=== PATIENT | female | born 1980 | race Caucasian/White ===

== ENCOUNTER 2017-04-16 15:27 | Emergency (ER) | payer SELFPAY ==
[~2017-04-16] VITALS: Ht 157.5 cm; Wt 78.9 kg
[2017-04-16 15:33] VITALS: Ht 157.5 cm; Wt 78.9 kg
[2017-04-16] MEDS ORDERED: ATA50 PO (16:03)
[2017-04-16] MEDS ORDERED: KENC1 TOP (16:03)
[2017-04-16] MEDS ORDERED: ELIM TOP (16:03)
--- NOTE | 2017-04-16 16:12 | ERD ---
ER Documentation Chief Complaint Date/Time DATE: 04/16/17 TIME: 16:10 Chief Complaint rash x 8 mos HPI Extension qc analyst has been used. This is a 36-year-old female no past medical history presents with 8 months of a rash to her extremities and trunk that is significantly pruritic and excoriated. The patient has tried permethrin cream once with only mild success. She denies any fevers or chills , no weight loss, no night sweats. Her whom with she shares her bed has similar symptoms. ROS All systems reviewed and are negative except as per history of present illness. Medications Home Meds Active Scripts Permethrin* (Elimite*) 5% Cr, 1 APPLIC TOP ONCE, #1 TUB Prov:KRISTEN RODRIGUEZ MD 04/16/17 Triamcinolone Acetonide* (Kenalog*) 0.1%-15GM Cr, 1 APPLIC TOP TID, #1 TUB Prov:KRISTEN RODRIGUEZ MD 04/16/17 Hydroxyzine Hcl* (Atarax*) 50 Mg Tab, 50 MG PO Q6H Y for ITCHING, #30 TAB Prov:KRISTEN RODRIGUEZ MD 04/16/17 FmHx Family History: No diabetes Physical Exam Vitals Vital Signs Date Time Temp Pulse Resp B/P Pulse Ox O2 Delivery O2 Flow Rate FiO2 04/16/17 15:33 98.1 99 18 124/74 99 Physical Exam General: Well developed, well nourished, no acute distress Head: Normocephalic, atraumatic. Eyes: EOM intact ENT: Moist mucous membranes Neck: Full ROM Respiratory: No respiratory distress Cardiovascular: Good capillary refil Abdominal: Nondistended : Deferred MSK: No edema, no unilateral swelling, 5/5 strength Neurologic: Alert and oriented, moving all extremities, normal speech, steady gait Skin: Diffuse excoriations to extremities and trunk, sparing of the interdigital and inner webspaces of the fingers and toes, no erythema warmth or tenderness Psych: Normal mood Procedures/MDM Lesions are either consistent with bedbug dermatitis versus scabies. No systemic signs or symptoms that would be concerning for immunocompromise state. Patient has similar symptoms to her who shares her bed. I believe the patient will benefit from a trial of permethrin cream, triamcinolone and Atarax. The patient has been referred to a vocational coordinator given the chronicity of symptoms. Primary care referral recommended. We discussed follow up with the patient's primary care doctor within 24 to 48 hours as needed. We also discussed return to the emergency room for worsening symptoms or worsening condition. Outpatient referral: Dermatology Discharge Medications: Atarax, triamcinolone, permethrin Departure Diagnosis: Primary Impression: Dermatitis Additional Impression: Bedbug bite Encounter type: initial encounter Qualified Code: W57.XXXA - Bedbug bite, initial encounter Condition: Stable Patient Instructions: Dermatitis, Non-Specific Referrals: SANDY CONTEH MD, JOSEPH F HARTMAN, ROBERT M MD [facility] () Usted se zarate hecho un examen mdico de control que le indica que no est en eloisa condicin que requiera tratamiento urgente en el Departamento de Emergencia. Un estudio ms profundo y el tratamiento de molina condicin pueden esperar sin ningn riesgo hasta que usted sea atendida/o en el consultorio de molina mdico o eloisa cl opal. Es responsabilidad suya arreglar eloisa maryam para el seguimiento del med. MANEJO DE CONDICIONES NO URGENTES EN EL FUTURO 1) Si usted tiene un mdico de atencin primaria: Usted debera llamar a molina mdico de atencin primaria antes de venir al departamento de emergencia. Despus de las horas de consultorio, molina doctor o molina asociado/a est disponible por telfono. El mdico o enfermero de emelyn en el servicio telefnico puede asesorarle por brii medio para atender el problema, o med contrario se puede programar eloisa maryam. 2) Si usted no tiene un mdico de atencin primaria: Llame al mdico o clnica de referencia que aparece abajo royal las horas de consultorio para hacer eloisa maryam para que le vean. CLINICAS: [facility] [phone] [address] [facility] [phone] [facility] [phone] [address] [facility]. [facility] [phone] [facility] [phone] [facility]. [phone] [facility] () Usted se zarate hecho un examen mdico de control que le indica que no est en eloisa condicin que requiera tratamiento urgente en el Departamento de Emergencia. Un estudio ms profundo y el tratamiento de molina condicin pueden esperar sin ningn riesgo hasta que usted sea atendida/o en el consultorio de molina mdico o eloisa cl opal. Es responsabilidad suya arreglar eloisa maryam para el seguimiento del med. MANEJO DE CONDICIONES NO URGENTES EN EL FUTURO 1) Si usted tiene un mdico de atencin primaria: Usted debera llamar a molina mdico de atencin primaria antes de venir al departamento de emergencia. Despus de las horas de consultorio, molina doctor o molina asociado/a est disponible por telfono. El mdico o enfermero de emelyn en el servicio telefnico puede asesorarle por brii medio para atender el problema, o med contrario se puede programar eloisa maryam. 2) Si usted no tiene un mdico de atencin primaria: Llame al mdico o condado institucions de referencia que aparece abajo royal las horas de consultorio para hacer eloisa maryam para que le vean. SI USTED NO PUEDE PAGAR PARA CARLITO UN MEDICO puede ir a: [facility] [id number] [place] [address] [facility] [address] [place] [address] [facility] [address] [place] [address] [facility] [address] [place], [place] [id number] Additional Instructions: Llame al doctor nombrado abajo (Referral Sources) MAANA y katy eloisa MARYAM PARA DENTRO DE ELOISA SEMANA. Dgale a la secretaria que nosotros le instruimos hacer esta maryam.Avise o llame si molina condicin se empeora antes de la maryam. KRISTEN RODRIGUEZ MD April 16, 2017 16:12
== END 2017-04-16 17:14 | disposition home or self-care (01) ==
LOC: E/R 15:27
DX: L30.9 Dermatitis, unspecified (principal); S80.862A Insect bite (nonvenomous), left lower leg, initial encounter; S80.861A Insect bite (nonvenomous), right lower leg, initial encounter; S40.861A Insect bite (nonvenomous) of right upper arm, initial encounter; S40.862A Insect bite (nonvenomous) of left upper arm, initial encounter; S30.860A Insect bite (nonvenomous) of lower back and pelvis, initial encounter; S20.469A Insect bite (nonvenomous) of unspecified back wall of thorax, initial encounter; S20.369A Insect bite (nonvenomous) of unspecified front wall of thorax, initial encounter; W57.XXXA Bitten or stung by nonvenomous insect and other nonvenomous arthropods, initial encounter; Y92.9 Unspecified place or not applicable
CPT/HCPCS: 99284